=== PATIENT | male | born 1970 | race Caucasian/White ===

== ENCOUNTER 2021-01-08 05:47 | Day surgery (SDC) | payer OTHER ==
[~2021-01-08] VITALS: Ht 172.7 cm; Wt 99.8 kg
[2021-01-08 07:17] LABS: ANION GAP 15.7 (8-16); CARBON DIOXIDE 27.2 mmol/L (21-32); POTASSIUM 4.9 mmol/L (3.5-5.1)
[2021-01-08 07:25] LABS: TOTAL BILIRUBIN 1.4 mg/dL (0.0-1.0)
[2021-01-08] MEDS ORDERED: PROPOFOL 200 MG/20 ML VIAL IV ONE ×2 (08:13)
== END 2021-01-08 09:35 | disposition home or self-care (01) ==
LOC: MDS 05:47 → MMU 06:15 → MDS 09:35
PROVIDERS: ATTEND Internal Medicine Gastroenterology
DX: Z12.11 Encounter for screening for malignant neoplasm of colon (principal); K64.8 Other hemorrhoids; I10 Essential (primary) hypertension; J45.909 Unspecified asthma, uncomplicated; Z86.010 Personal history of colon polyps; Z79.82 Long term (current) use of aspirin; Z79.899 Other long term (current) drug therapy
CPT/HCPCS: 36415; 45378; 71045; 80053; J2704; J7030